=== PATIENT | male | born 1985 | race Caucasian/White ===

== ENCOUNTER 2024-11-21 16:41 | Observation (INO) | payer OTHER ==
[~2024-11-21] VITALS: Ht 177.8 cm; Wt 118.0 kg
[~2024-11-21 16:41] MED LIST: ACETAMINOPHEN500 MG PO; DIGESTIVE ENZY220 MG PO; DOXYCYCLINE HY100 MG PO; HYDROCODON-ACE1 EA10 PO; IBUPROFEN600 MG PO; OMEPRAZOLE20 MG PO; SEVOFLURANE 250 ML BTL INH ONE; STOOL SOFTENER100 MG PO
[2024-11-21] MEDS ORDERED: FAMOTIDINE 20 MG/ 2 ML VIAL IV ONE (17:30)
[2024-11-21] MEDS ORDERED: LACTATED RINGER'S 1,000 ML IV SCH ×2 (17:45→20:00)
[2024-11-21 18:05] LABS: BASOPHILS 0.6 % (0.2-1.2); EOSINOPHILS 1.7 % (0.8-7.0); LYMPHOCYTES 17.2 % (21.8-53.1); MCH 32.2 PG (25.7-32.2); MCHC 35.0 g/dL (32.3-36.5); MCV 91.9 fL (79.0-92.2); MONOCYTES 5.2 % (5.3-12.2); NEUTROPHILS 74.7 % (34.0-67.9); RBC 4.91 M/uL (4.63-6.08)
[2024-11-21 18:07] LABS: GLOMERULAR FILTRATION RATE,EST 96.0 mL/min (>60); UREA NITROGEN 7.0 mg/dL (7-18)
[2024-11-21] MEDS ORDERED: LIDOCAINE HCL 2% 5 ML SDV ONE (18:53)
[2024-11-21] MEDS ORDERED: SUCCINYLCHOLINE IN 0.9% NACL 200 MG/10 ML SYRINGE ONE (18:53)
[2024-11-21] MEDS ORDERED: fentaNYL citrate 100 MCG/2 ML VIAL ONE (19:17)
[2024-11-21] MEDS ORDERED: KETAMINE in NS 50 MG/5 ML SYR ONE (19:21)
[2024-11-21] MEDS ORDERED: GLYCOPYRROLATE 1 MG/5 ML MDV ONE (19:35)
[2024-11-21] MEDS ORDERED: DEXAMETHASONE SOD PHOS 4 MG/ML VIAL ONE (19:35)
[2024-11-21] MEDS ORDERED: ALBUTEROL/IPRATROPIUM 3 ML NEB ONE (19:46)
[2024-11-21] MEDS ORDERED: FLUTICASONE PRO16 GM NAS (19:58)
[2024-11-21] MEDS ORDERED: PANTOPRAZOLE SO40 MG PO (19:58)
[2024-11-21] MEDS ORDERED: NALOXONE HCL 0.4 MG SYR IV PRN (20:00)
[2024-11-21] MEDS ORDERED: ALBUTEROL SULFATE 0.083% 3 ML VIAL INH PRN (20:00)
--- NOTE | 2024-11-21 20:15 | NUR ---
Pt arrived from PACU via stretcher, alert and oriented. no c/o throat pain. hob elevated. on room air, lungs clear bilat, abd soft, adrian. IV LAC patent. tolerating liquids well, no c/o n/v. aware of meet criteria . cooperative with vitals. Pleasnt and cooperative
[2024-11-21 20:27] VITALS: BP 127/78
--- NOTE | 2024-11-21 20:34 | NUR ---
11/21/242033 Kusum Rosado 1950 PT ARRIVED TO PACU AND BREATHING TREATMENT STRATED PER FLASK PUSHER AT 6L PT COUGHING AND GRABBING AT O2 MASK OFF AND ON. 1951 PT OPENS HIS EYES AND DENIES PAIN AND NAUSEA. PT SIPPING WATER AND CONTINUES TO COUGH OFF AND ON. PT SITTING IN HIGH FOWLERS. O2 REMOVED. 1954 AT BEDSIDE TALKING TO PT. ALL QUESTIONS ANSWERED. 2014 PT TRANSFERED TO FLOOR AND REPORT GIVEN. EDUCATION GIVEN ON NEW MEDICATIONS AND DC PLAN. VSS.
[2024-11-21] MEDS ORDERED: PANTOPRAZOLE SODIUM 40 MG TABEC PO SCH (21:00)
[2024-11-21] MEDS ORDERED: FLUTICASONE PROPIONATE 50 MCG BTL NAS SCH (21:00)
[2024-11-21] MEDS ORDERED: FAMOTIDINE 20 MG/ 2 ML VIAL IV SCH (21:00)
[2024-11-21 21:26] VITALS: BP 130/99
--- NOTE | 2024-11-21 21:46 | NUR ---
Pt awake, has tolerating liquids well, no c/o sore throat at this time, slight cough present. Up to BRP at this time. Cooperative with vitals. DC instructions given orally and verbally stated understanding, questions answered to his satisfaction
--- NOTE | 2024-11-21 22:03 | NUR ---
0 DC instrutions given to pt verbally and written and read back, stated understanding. Up to BRP voided and got dressed. tolerating liquids and Jello 0 - IV dc'd LAC tip intact. procedure explained cooperative. Continues to deny need for pain med or throat pain 5 - DC home ambulatory with all belongins, written DC instructions acompanied by SOAP DRIER OPERATOR to friends private car.
--- NOTE | 2024-11-23 11:56 | HP ---
[facility] [address], [place] [address] Signed ADMISSION DATE: 11/21/2024 REASON FOR ADMISSION: Impacted food bolus (probably chicken). HISTORY OF PRESENT ILLNESS: This 39-year-old white man presented to the emergency room having been transferred by [facility] with complaints of a sensation of food stuck in the proximal esophagus. The patient was eating a chicken based burrito. He had a significant hypersalivation. He has had a similar episode approximately 4 years ago dealt with with upper endoscopy apparently. He continues to have episodic hypersalivation. Evaluation by Dr. Joe Conti included clinical evaluation, which is highly suggestive of persistent food impaction. He is admitted for treatment. PAST MEDICAL HISTORY: Notable for disability related to "bipolar disease." He also has history of "heartburn" for which he has taken zoap-yso-jdhzivp antacids, but is on no regular medication for that. He has had right and left inguinal hernia repair approximately 10 years ago and cholecystectomy in the past at [facility], probably by Dr. Armando Kahn. SOCIAL HISTORY: He is not and he has no children. He is not working. He lives in [place], [place]. REVIEW OF SYSTEMS: He denies any shortness of breath or actual chest pain. He has had no hematemesis or blood per rectum. PHYSICAL EXAMINATION: GENERAL: Relatively healthy-appearing white man, who is moderately obese. VITAL SIGNS: Temperature is 98.6, pulse 76, respirations 16, blood pressure 128/69, and O2 saturation 98% on room air. NECK: Trachea is midline. He has no crepitus. He has no hoarseness. CHEST: Clear. HEART: Regular without murmur. ABDOMEN: Soft and nondistended. There is no focal mass or tenderness. EXTREMITIES: Show no clubbing, cyanosis, or edema. LABORATORY DATA: A BMP and a CBC are pending. Electronically Signed By: JERE GUERRERO MD 11/23/24 1156 PATIENT NAME: BONG WILL HISTORY AND PHYSICAL DATE OF : [birth year] REPORT #: [id number] PHYSICIAN: JERE GUERRERO MD PCP: NO PRIMARY CARE PHYSICIAN REPORT IS CONFIDENTIAL AND NOT TO BE RELEASED WITHOUT AUTHORIZATION [facility] [address], [place] [address] Signed ASSESSMENT AND PLAN: The patient has clinical findings and history consistent with food impaction, likely related to a chicken burrito. He has had a similar problem in the past. He is not known to have had eosinophilic esophagitis so far as he knows and this may be represent that as an underlying problem. He does have underlying heartburn, which is not generally disabling and he takes no medications other than ewva-nao-xuhefcv antacids from [facility]. I have recommended upper endoscopy be undertaken. Food bolus removed and biopsy taken of the area for which obstruction has been identified. The risk of bleeding, infection, and perforation were reviewed with him. He understands and wishes to proceed. We will do this under general anesthesia as his stomach will be presumed to be full, though the impaction occurred early in the meal apparently. Jere Guerrero MD JM/MODL /[id number] cc: Dr. Conti Copies: ~ Electronically Signed By: JERE GUERRERO MD 11/23/24 1156 PATIENT NAME: BONG WILL LYNDSEY HISTORY AND PHYSICAL DATE OF : [birth year] REPORT #: [id number] PHYSICIAN: JERE GUERRERO MD PCP: NO PRIMARY CARE PHYSICIAN REPORT IS CONFIDENTIAL AND NOT TO BE RELEASED WITHOUT AUTHORIZATION
--- NOTE | 2024-11-23 11:56 | OR ---
[facility] [address], [place] [address] Signed DATE OF OPERATION: 11/21/2024 SURGEON: Jere Guerrero MD PREOPERATIVE DIAGNOSIS: Mid to proximal food impaction (recurrent). POSTOPERATIVE DIAGNOSES: 1. Food impaction of approximately 27 cm, possible eosinophilic esophagitis anatomy. 2. Hiatal hernia without distal stricture. PROCEDURES: 1. Upper endoscopy with extraction and clearance of food impaction. 2. Esophagogastroduodenoscopy with biopsy. ANESTHESIA: General endotracheal, Beatriz Roland CRNA. INDICATION: This 39-year-old white man presents to the emergency room and was evaluated by Dr. Aly with hypersalivation and a sensation of food being stuck in the proximal to mid esophagus. The patient has had a similar episode approximately four years ago, which was remedied with endoscopic techniques in [facility]. The patient denies ongoing dysphagia day-to-day, though does have occasions of heartburn, for which, he takes ruum-ywo-jcfgisn medication. He has not been on a PPI medication. He has no family history of esophageal cancer, and he has had no hematemesis or blood per rectum. He has had persistent hypersalivation, indicating ongoing and persistent obstruction. His meal was a chicken burrito at approximately 2:30 p.m. He is now to undergo upper endoscopy for clearance of the esophageal impaction by upper endoscopy. A general anesthetic is recommended so as to protect the airway given the uncertainty of his hazard for aspiration of the foreign body or food within the stomach. The risk of bleeding, infection, and perforation related to upper endoscopy and food impaction and remedy were reviewed. He understands and wished to proceed. FINDINGS: Indeed, there was complete obstruction in the mid upper esophagus related to food impaction with chicken. This was cleared with a three-prong grasper dominantly extracting food, but additionally pushing some through the GE junction. There was no specific stricture. However, the area of impaction did have inflammation and a concentric ring appearance (felinization), highly suggestive of eosinophilic Electronically Signed By: JERE GUERRERO MD 11/23/24 1156 PATIENT NAME: BONG WILL OPERATIVE REPORT DATE OF : [birth year] REPORT #: [id number] PHYSICIAN: JERE GUERRERO MD PCP: NO PRIMARY CARE PHYSICIAN REPORT IS CONFIDENTIAL AND NOT TO BE RELEASED WITHOUT AUTHORIZATION [facility] [address], [place] [address] Signed esophagitis. Additional examination of the esophagus, stomach, and duodenum was undertaken, confirming primarily a hiatal hernia without distal stricture, though there may or may not be Moser's epithelium of the distal esophagus itself. The offending area of obstruction was biopsied to affirm or refute eosinophilic esophagitis. Biopsies were undertaken elsewhere including the proximal esophagus, distal esophagus, antrum; and CLOtest was undertaken as well. Quite notably, a CLOtest was negative 15 minutes post procedure. DESCRIPTION OF PROCEDURE: The patient was brought to the endoscopy suite and given a general endotracheal anesthetic. He was allowed to remain in supine position. A bite block was placed. An Olympus video upper endoscope was passed in the hypopharynx and into the esophagus without problem. In the mid esophagus was the obvious food impaction of chicken meat. Excess secretions were suctioned free. Using a three-prong grasper, the impacted meat bolus was grasped and it was brought along in a retrograde fashion reasonably well, though shards of the bolus disengaged during extraction due to some degree. Reintroduction of an endoscope was undertaken several times, but not excessively, allowing for extraction of the bolus and attempts at removal with a Amos net, which was completely unsuccessful. When this shards were broken up enough, gentle passage forward, approximately 27 cm, allowed for pushing the remaining food bolus into the stomach itself. Examination of the stomach was then undertaken showing normal rugal folds. Antrum appeared normal as was the pylorus. The retroflexed view showed a moderate-sized hiatal hernia. Scope was advanced into the pylorus, into the duodenum. The duodenum was normal. Scope was withdrawn. Biopsies taken of the antrum for both BASIA and pathologic testing. Scope was withdrawn and irrigation of the distal and mid and upper portions undertaken, allowing for biopsy of the distal esophagus and mid esophagus at an area with felinization, highly suggestive of the eosinophilic esophagitis and of course proximal biopsies as well. Complete clearance of the esophagus was undertaken, and excess fluid in the stomach was suctioned free. Only minimal shards of the chicken meat remained. The scope was then withdrawn and plans were made for extubation in the procedure, which is pending. MD KARRI Manjarrez/HUNTER Electronically Signed By: JERE GUERRERO MD 11/23/24 1156 PATIENT NAME: BONG WILL OPERATIVE REPORT DATE OF : [birth year] REPORT #: [id number] PHYSICIAN: JERE GUERRERO MD PCP: NO PRIMARY CARE PHYSICIAN REPORT IS CONFIDENTIAL AND NOT TO BE RELEASED WITHOUT AUTHORIZATION [address] [place] [address] Signed /[id number] cc: Dr. Aly Copies: ~ Electronically Signed By: JERE GUERRERO MD 11/23/24 1156 PATIENT NAME: SUMANBONG OPERATIVE REPORT DATE OF : [birth year] REPORT #: [id number] PHYSICIAN: JERE GUERRERO MD PCP: NO PRIMARY CARE PHYSICIAN REPORT IS CONFIDENTIAL AND NOT TO BE RELEASED WITHOUT AUTHORIZATION
--- NOTE | 2024-11-24 19:11 | PATH ---
[facility] [address], [place] [address] Signed SPECIMEN(S): A ANTRUM BIOPSY SPECIMEN(S): B DISTAL ESOPHAGEAL BIOPSY SPECIMEN(S): C MID ESOPHAGEAL BIOPSY SPECIMEN(S): D PROXIMAL ESOPHAGEAL BIOPSY SPECIMEN SOURCE: A. ANTRUM BIOPSY B. DISTAL ESOPHAGEAL BIOPSY C. MID ESOPHAGEAL BIOPSY D. PROXIMAL ESOPHAGEAL BIOPSY CLINICAL HISTORY: Post: Possible eosinophilic esophagitis FINAL PATHOLOGIC DIAGNOSIS: A. Stomach, antrum, biopsy: - Antral-type mucosa with slight nonspecific chronic inflammation and focal superficial vascular congestion. - No acute or active inflammation identified. - No H. pylori-like organisms identified on routine HE-stained histologic sections. - Negative for intestinal metaplasia, dysplasia, and malignancy. B. Distal esophagus, biopsy: - Ulcerated squamous esophageal mucosa with acute and chronic inflammation and reactive epithelial cell changes. - PAS-D stain shows rare yeast and pseudohyphae as well as numerous bacteria (large cocci in clusters). - Rare eosinophils are present, averaging less than 1 per high-power field. - No glandular epithelium identified. - No dysplasia or malignancy identified. C. Mid esophagus, biopsy: - Esophagitis with mixed chronic, eosinophilic, and acute inflammation and moderate basal cell hyperplasia. - Eosinophils average 12 per high-power field, with two high-power yeh containing up to 18 eosinophils. - No yeast or fungal organisms identified on routine histologic sections. - Negative for dysplasia and malignancy (please see comment). D. Proximal esophagus, biopsy: - Stratified squamous esophageal mucosa with slight eosinophilic inflammation and congestion in the rete peg vessels. PATIENT NAME: BONG WILL PATHOLOGY DATE OF : [birth year] REPORT #: [id number] PHYSICIAN: DINORAH WHITTAKER PCP: NO PRIMARY CARE PHYSICIAN REPORT IS CONFIDENTIAL AND NOT TO BE RELEASED WITHOUT AUTHORIZATION [facility] [address], [place] [address] Signed - Rare eosinophils, averaging less than 1 per high-power field. - Negative for dysplasia and malignancy. Comment for Specimen C: Eosinophils are focally increased, with 2 high-power yeh containing up to 18 eosinophils. However, the mixed pattern of inflammation is not entirely characteristic of eosinophilic esophagitis. The differential diagnosis includes eosinophilic esophagitis, inflammation related to food or pill bolus, or possibly extension of inflammation related to the lower esophageal ulcer. Correlations with the patient's symptoms and endoscopic examination results will be needed. SDL MICROSCOPIC EXAMINATION: Histologic sections of all submitted blocks are examined by light microscopy. These findings, together with the gross examination, support the pathologic diagnosis. GROSS DESCRIPTION: A. The specimen, labeled and designated "Qing, antrum biopsy," is received in formalin and consists of two lawson soft tissue fragments, ranging from 0.1-0.3 cm. Entirely submitted in (A1). B. The specimen, labeled and designated "Qing, distal esophagus biopsy," is received in formalin and consists of four lawson soft tissue fragments, ranging from 0.1-0.3 cm. Entirely submitted in (B1). C. The specimen, labeled and designated "Qing, mid esophagus biopsy," is received in formalin and consists of eight lawson soft tissue fragments, ranging from 0.1-0.3 cm. Entirely submitted in (C1). D. The specimen, labeled and designated "Qing, proximal esophagus biopsy," is received in formalin and consists of two lawson soft tissue fragments, ranging from 0.2-0.3 cm. Entirely submitted in (D1). JS (under the direct supervision of a pathologist) The Gross Description was prepared using a voice recognition system. The report was reviewed for accuracy; however, sound-alike word errors, addition and/or deletions may occur. If there is any question about this report, please contact Client Services. ADDITIONAL NOTES: Immunohistochemical and/or in situ hybridization studies if performed in this PATIENT NAME: BONG WILL PATHOLOGY DATE OF : [birth year] REPORT #: [id number] PHYSICIAN: DINORAH PATHOLOGY PCP: NO PRIMARY CARE PHYSICIAN REPORT IS CONFIDENTIAL AND NOT TO BE RELEASED WITHOUT AUTHORIZATION [facility] [address] [place] [id number] Signed case included appropriate positive controls that reacted as expected. This test was developed and its performance characteristics determined by [facility]. It has not been cleared or approved by the U.S. Food and Drug Administration. The FDA has determined that such clearance or approval is not necessary. This test is used for clinical purposes. It should not be regarded as investigational or for research. [facility] is certified under the Clinical Laboratory Improvement Amendments of 1988 (CLIA) as qualified to perform high complexity clinical laboratory testing. PERFORMING LABORATORY: Technical component was performed by [facility], [address] [place] [id number] (CLIA# [id number]). Professional interpretation was performed by [facility], [address] [place] [address], [place] [address] (CLIA#: [id number]). Diagnostician: Gretta Peña MD Pathologist Electronically Signed 11/24/2024 Copies: ~ PATIENT NAME: BONG WILL PATHOLOGY DATE OF : [birth year] REPORT #: [id number] PHYSICIAN: DINORAH PATHOLOGY PCP: NO PRIMARY CARE PHYSICIAN REPORT IS CONFIDENTIAL AND NOT TO BE RELEASED WITHOUT AUTHORIZATION
== END 2024-11-21 21:55 | disposition home or self-care (01) ==
LOC: ED 16:41 → MS 16:43
PROVIDERS: Emergency Medicine; ADMIT Surgery; ATTEND Surgery
PROC: 0DC58ZZ Extirpation of Matter from Esophagus, Via Natural or Artificial Opening Endoscopic (ICD-10-PCS; 2024-11-21)
PROC: 0DB58ZX Excision of Esophagus, Via Natural or Artificial Opening Endoscopic, Diagnostic (ICD-10-PCS; principal; 2024-11-21 19:24)
DX: T18.128A Food in esophagus causing other injury, initial encounter (principal); K22.10 Ulcer of esophagus without bleeding; K44.9 Diaphragmatic hernia without obstruction or gangrene; K22.2 Esophageal obstruction; E66.9 Obesity, unspecified; F17.200 Nicotine dependence, unspecified, uncomplicated; Z88.8 Allergy status to other drugs, medicaments and biological substances
CPT/HCPCS: 00813; 36415; 80048; 85025; 88305; 88312; 96374; 99285-25; A9270; J0330; J1100; J2003; J2405; J2704; J3010; J3490